=== PATIENT | female | born 1985 | race Caucasian/White ===

== ENCOUNTER 2017-05-03 18:57 | Emergency (ER) | payer OTHER ==
[~2017-05-03] VITALS: Ht 172.7 cm; Wt 65.0 kg
[~2017-05-03 18:57] MED LIST: PRED20 PO; PREN0.01 PO; PROM6.257 PO; VENTAER INH
[2017-05-03 19:02] VITALS: BP 149/84; PULSE 74; RESP 16; TEMP 97.4; O2SAT 100
[2017-05-03] MEDS ORDERED: SODIUM CHLOR 0.9% 1000 ML INJ 1,000 ML IV ONE (19:53)
[2017-05-03] MEDS ORDERED: SODIUM CHLORIDE 0.9% FLUSH 10 ML FLUSH IVF PRN (20:00)
[2017-05-03 20:08] VITALS: BP_SYST 133; BP_SYST 135; BP_DIAS 72; BP_DIAS 75; RESP 16
[2017-05-03 20:09] VITALS: BP 143/82; RESP 16; O2SAT 100
[2017-05-03 20:10] VITALS: BP 143/82; PULSE 82; RESP 16; O2SAT 100
[2017-05-03] MEDS ORDERED: GADODIAMIDE PF 287 MG/ML 5 ML VIAL (for RAD MRI) IV ONE (20:56)
--- NOTE | 2017-05-03 21:06 | RADRPT ---
EXAM DATE/TIME: 05/03/2017 20:30 [facility] COMPARISON: No previous studies available for comparison. INDICATIONS : Cephalgia and dizziness. RADIATION DOSE: 38.53 CTDIvol (mGy) MEDICAL HISTORY : None SURGICAL HISTORY : Tubal ligation. ENCOUNTER: Initial ACUITY: 2 months PAIN SCALE: 3/10 LOCATION: cranial TECHNIQUE: Multiple contiguous axial images were obtained of the head. Using automated exposure control and adj ustment of the mA and/or kV according to patient size, radiation dose was kept as low as reasonably a chievable to obtain optimal diagnostic quality images. FINDINGS: CEREBRUM: The ventricles are normal for age. No evidence of midline shift, mass lesion, hemorrhage or acute in farction. No extra-axial fluid collections are seen. POSTERIOR FOSSA: The cerebellum and brainstem are intact. The 4th ventricle is midline. The cerebellopontine angle i s unremarkable. EXTRACRANIAL: The visualized portion of the orbits is intact. SKULL: The calvaria is intact. No evidence of skull fracture. CONCLUSION: Normal examination. Agapito Dunne MD on May 03, 2017 at 21:03 Board Certified Radiologist. This report was verified electronically.
[2017-05-03 21:15] LABS: AUTOMATED NEUTROPHIL # 4.2 TH/MM3 (1.8-7.7); BASOPHIL # 0.1 TH/MM3 (0-0.2); BASOPHIL % 0.8 % (0.0-2.0); EOSINOPHIL # 0.1 TH/MM3 (0-0.4); EOSINOPHIL % 1.1 % (0.0-4.0); HEMATOCRIT 42.7 % (35.0-46.0); HEMO FLAGS DIFF FINAL; LYMPH % 30.8 % (9.0-44.0); LYMPHOCYTE # 2.1 TH/MM3 (1.0-4.8); MEAN CELL VOLUME 91.2 FL (80.0-100.0); MEAN CORPUSCULAR HEMOGLOBIN 31.1 PG (27.0-34.0); MONO % 6.5 % (0.0-8.0); NEUT % 60.8 % (16.0-70.0); PLATELET COUNT 247 TH/MM3 (150-450); RED BLOOD COUNT 4.68 MIL/MM3 (4.00-5.30); RED CELL DISTRIBUTION WIDTH 13.9 % (11.6-17.2); WHITE BLOOD COUNT 6.9 TH/MM3 (4.0-11.0)
[2017-05-03 21:37] LABS: POTASSIUM 3.8 MEQ/L (3.5-5.1)
--- NOTE | 2017-05-03 21:41 | RADRPT ---
EXAM DATE/TIME: 05/03/2017 20:37 [facility] COMPARISON: No previous studies available for comparison. INDICATIONS : Dizziness. Cephalgia. CONTRAST: 13 cc Omniscan (gadodiamide) IV MEDICAL HISTORY : None. SURGICAL HISTORY : section. ENCOUNTER: Subsequent ACUITY: 2 day PAIN SCORE: 0/10 LOCATION: head. Known MRI Precautions: Sedation utilized? No Anesthesia present? No MRI reaction? No If YES explain: TECHNIQUE: Multiplanar, multisequence MRI of the brain was performed both prior to and following the administrat ion of paramagnetic contrast. FINDINGS: CEREBRUM: The ventricles are normal for age. No evidence of midline shift, mass lesion, hemorrhage or acute in farction. No extraaxial fluid collections are seen. The pituitary gland and suprasellar cistern are normal in configuration. WHITE MATTER: No significant signal abnormalities are seen in the white matter. POSTERIOR FOSSA: The cerebellum and brainstem are intact. The 4th ventricle is midline. The cerebellopontine angle is unremarkable. The cerebellar tonsils are normal in position. DIFFUSION IMAGING: No focal areas of restricted diffusion are seen. No evidence of acute infarction. EXTRACRANIAL: The visualized portions of the orbits and paranasal sinuses are unremarkable. POST-CONTRAST: No abnormal areas of parenchymal or dural enhancement. No evidence of blood-brain barrier breakdown. CONCLUSION: Normal examination for a patient of this age. Agapito Dunne MD on May 03, 2017 at 21:35 Board Certified Radiologist. This report was verified electronically.
--- NOTE | 2017-05-03 21:52 | PD ---
HPI Chief Complaint: Dizziness Time Seen by Provider: 19:45 Travel History International Travel<30 days: No Contact w/Intl Traveler<30days: No Traveled to known affect area: No History of Present Illness HPI The patient's 32 years old. She reports about 6 months of of a vague sensation of feeling "spaced out" which she further clarifies as a dizziness type and sensation in the trunk/high sensation. Standing from a sitting position causes dizziness at times it seems for the patient. Today the symptoms have been constant for the last few hours. She denies of vertiginous type quality however reports he tracking type of visual change as she moves her eyes from side to side in a horizontal field. She's had no nausea vomiting or fever. She reports the headaches intermittently especially after workouts. The workouts aren't quite strenuous and she doesn't about 4 times a week. She reports normal appetite. She denies any medication. She drinks alcohol occasionally. She denies drugs and tobacco. She's been forgetful at times. PFSH Past Medical History Medical History: Denies Significant Hx Hx Anticoagulant Therapy: No Cardiovascular Problems: No Chemotherapy: No Cerebrovascular Accident: No Diabetes: No Diminished Hearing: No Genitourinary: Yes (UTI ) Respiratory: No Immunizations Current: Yes Tetanus Vaccination: Unknown Influenza Vaccination: No ?: Not LMP: 03/03/17 Tubal Ligation: Yes Past Surgical History Section: Yes (X2) Gynecologic Surgery: Yes ( ) Social History Alcohol Use: Yes (OCC) Tobacco Use: No Substance Use: No Allergies-Medications (Allergen,Severity, Reaction): Coded Allergies: Bactrim (Verified Allergy, Severe, ITCHY, 05/03/17) Cefzil (Verified Allergy, Severe, HIVES, 05/03/17) Sulfa (Verified Allergy, Intermediate, HIVES, 05/03/17) Reported Meds & Prescriptions Reported Meds & Active Scripts Active No Active Prescriptions or Reported Medications Review of Systems Except as stated in HPI: all other systems reviewed are Neg General / Constitutional: No: Fever Physical Exam Narrative GENERAL: 32-year-old female pleasant well-nourished well-developed SKIN: Focused skin assessment warm/dry. HEAD: Atraumatic. Normocephalic. EYES: Pupils equal and round. No scleral icterus. No injection or drainage. ENT: No nasal bleeding or discharge. Mucous membranes pink and moist. NECK: Trachea midline. No JVD. CARDIOVASCULAR: Regular rate and rhythm. No murmur appreciated. RESPIRATORY: No accessory muscle use. Clear to auscultation. Breath sounds equal bilaterally. GASTROINTESTINAL: Abdomen soft, non-tender, nondistended. Hepatic and splenic margins not palpable. MUSCULOSKELETAL: No obvious deformities. No clubbing. No cyanosis. No edema. NEUROLOGICAL: Awake and alert. No obvious cranial nerve deficits. Motor grossly within normal limits. Normal speech. Normal cerebellar function. PSYCHIATRIC: Appropriate mood and affect; insight and judgment normal. Data Data Last Documented VS Vital Signs Date Time Temp Pulse Resp B/P Pulse Ox O2 Delivery O2 Flow Rate FiO2 05/03/17 22:30 80 18 135/70 98 Room Air 05/03/17 19:02 97.4 VS reviewed Orders Electrocardiogram (05/03/17 19:53) Basic Metabolic Panel (Bmp) (05/03/17 19:53) Complete Blood Count With Diff (05/03/17 19:53) Urinalysis - C+S If Indicated (05/03/17 19:53) Ct Brain W/O Iv Contrast(Rout) (05/03/17 19:53) Ecg Monitoring (05/03/17 19:53) Iv Access Insert/Monitor (05/03/17 19:53) Oximetry (05/03/17 19:53) Sodium Chloride 0.9% Flush (Ns Flush) (05/03/17 20:00) Sodium Chlor 0.9% 1000 Ml Inj (Ns 1000 M (05/03/17 19:53) Orthostatic Vital Signs (05/03/17 19:53) Mri Brain W&W/O Contrast (05/03/17 ) Ed Urine Pregnancytest Poc (05/03/17 19:53) Gadodiamide Pf Inj (Omniscan Pf Inj) (05/03/17 20:56) Labs Laboratory Tests Test 05/03/17 05/03/17 05/03/17 20:00 21:00 21:50 White Blood Count 6.9 TH/MM3 Red Blood Count 4.68 MIL/MM3 Hemoglobin 14.5 GM/DL Hematocrit 42.7 % Mean Corpuscular Volume 91.2 FL Mean Corpuscular Hemoglobin 31.1 PG Mean Corpuscular Hemoglobin 34.0 % Concent Red Cell Distribution Width 13.9 % Platelet Count 247 TH/MM3 Mean Platelet Volume 10.5 FL Neutrophils (%) (Auto) 60.8 % Lymphocytes (%) (Auto) 30.8 % Monocytes (%) (Auto) 6.5 % Eosinophils (%) (Auto) 1.1 % Basophils (%) (Auto) 0.8 % Neutrophils # (Auto) 4.2 TH/MM3 Lymphocytes # (Auto) 2.1 TH/MM3 Monocytes # (Auto) 0.4 TH/MM3 Eosinophils # (Auto) 0.1 TH/MM3 Basophils # (Auto) 0.1 TH/MM3 CBC Comment DIFF FINAL Differential Comment Sodium Level 139 MEQ/L Potassium Level 3.8 MEQ/L Chloride Level 104 MEQ/L Carbon Dioxide Level 27.0 MEQ/L Anion Gap 8 MEQ/L Blood Urea Nitrogen 16 MG/DL Creatinine 0.83 MG/DL Estimat Glomerular Filtration 80 ML/MIN Rate Random Glucose 84 MG/DL Calcium Level 7.5 MG/DL Urine Color YELLOW Urine Turbidity CLEAR Urine pH 5.5 Urine Specific [place] 1.018 Urine Protein NEG mg/dL Urine Glucose (UA) NEG mg/dL Urine Ketones NEG mg/dL Urine Occult Blood NEG Urine Nitrite NEG Urine Bilirubin NEG Urine Urobilinogen LESS THAN 2.0 MG/DL Urine Leukocyte Esterase NEG Urine RBC 1 /hpf Urine WBC 1 /hpf Microscopic Urinalysis Comment CULT NOT INDICATED MDM Medical Decision Making Medical Screen Exam Complete: Yes Emergency Medical Condition: Yes Medical Record Reviewed: Yes Differential Diagnosis Vertigo, lightheadedness, dehydration, electrolyte imbalance, anemia, intracranial mass Narrative Course CBC & BMP Diagram 05/03/17 20:00 05/03/17 21:00 EKG reveals a sinus rhythm with a rate of 67 no ischemic injury pattern or preexcitation pattern Last [address] 05/03/17 1953 Signed Impressions: Service Date/Time: Wednesday, May 03, 2017 20:30 - CONCLUSION: Normal examination. Agapito Dunne MD Brain MRI 05/03/17 0000 Signed Impressions: Service Date/Time: Wednesday, May 03, 2017 20:37 - CONCLUSION: Normal examination for a patient of this age. Agapito Dunne MD The patient is resting comfortably and feels better, is alert and in no distress. The patients results and examination findings were discussed. The repeat examination is unremarkable and benign. The history, exam, diagnostic testing, and current condition do not suggest any significant pathology to warrant further testing, continued ED treatment, admission, or surgical evaluation at this point. The vital signs have been stable. The patient does not have uncontrollable pain, intractable vomiting, or other significant symptoms. The patient's condition is stable and appropriate for discharge. The patient will pursue further outpatient evaluation with a primary care physician or other designated or consulting physician as indicated in the discharge instructions. The patient expressed understanding and was agreeable with this plan. Diagnosis Primary Impression: Dizziness Referrals: Go Young MD 2 days Primary Care Physician 2 days Additional Instructions: You have a choice when it comes to health care, and we are glad that you chose [facility]. Hopefully, we have met your expectations on today's visit. You are welcome to return to [facility] at any time, as we are committed to meeting the health care needs of our community. Med/Other Pt SpecificInfo: No Change to Meds Scripts No Active Prescriptions or Reported Meds Disposition: 01 DISCHARGE HOME Condition: Stable David Coley MD May 03, 2017 21:52
[2017-05-03 22:05] LABS: BLOOD, URINE NEG (NEG); GLUCOSE,URINE NEG (NEG); KETONE, URINE NEG (NEG); NITRITE,URINE NEG (NEG); PH, URINE 5.5 (5.0-8.5); URINE COLOR YELLOW (YELLW/STRAW)
[2017-05-03 22:10] LABS: COMMENT (UR) CULT NOT INDICATED; CULTURE IF INDICATED CULT NOT INDICATED
[2017-05-03 22:30] VITALS: BP 135/70; PULSE 80; RESP 18; O2SAT 98
--- NOTE | 2017-05-04 10:05 | EKG ---
Date Performed: 05/03/2017 Time Performed: 21:19:12 PTAGE: 32 years EKG: Sinus rhythm SEPTAL MYOCARDIAL INFARCTION ABNORMAL ECG NO PREVIOUS TRACING DOCTOR: Sergey Holloway Interpretating Date/Time 05/04/2017 10:03:57
== END 2017-05-03 22:39 | disposition home or self-care (01) ==
LOC: NEPD 18:57
DX: R42 Dizziness and giddiness (principal); R94.31 Abnormal electrocardiogram [ECG] [EKG]; R51 Headache
CPT/HCPCS: 70450; 70553; 80048; 81001; 84703; 85025; 93005; 96360; 99285; A9579; J7030